=== PATIENT | male | born 1985 | race Caucasian/White ===

== ENCOUNTER 2020-04-18 15:17 | Outpatient (CLI) | payer OTHER ==
--- NOTE | 2020-04-19 09:30 | RAD ---
EXAM: CHEST TWO VIEWS: 04/18/20 HISTORY: Community acquired pneumonia. FINDINGS: Positioning is somewhat limited because of patient's inability to properly follow verbal commands. Po or inspiratory effort with some mild vascular congestion. Heart size is within normal limits. No conf luent pneumonia or overt edema. Left hemidiaphragm elevation. IMPRESSION: Poor inspiratory effort with some focal left hemidiaphragm elevation. No overt confluent pneumonia. N o other significant acute process. If patient has persistent or worsening symptoms, consider short term follow-up examination. POS: OFF
== END 2020-04-18 15:18 | disposition home or self-care (01) ==
LOC: MADRAD 15:17
PROVIDERS: ATTEND Family Medicine
DX: J18.9 Pneumonia, unspecified organism (principal); Q79.1 Other congenital malformations of diaphragm
CPT/HCPCS: 71046

== ENCOUNTER 2020-04-19 10:19 | Emergency (ER) | payer OTHER | END 2020-04-19 11:17 | disposition home or self-care (01) | LOC: MADERS 10:19 | DX: S00.01XA Abrasion of scalp, initial encounter (principal); F84.0 Autistic disorder; Z79.899 Other long term (current) drug therapy; W19.XXXA Unspecified fall, initial encounter | CPT/HCPCS: 99283 ==